=== PATIENT | male | born 1955 | race Caucasian/White ===

== ENCOUNTER → 2018-03-01 08:00 | Outpatient (CLI) | payer BC, SELFPAY ==
--- NOTE | 2018-03-01 | IMM_PTH ---
PATIENT: EARL ROGERS LOC: NADIA U#:[id number] AGE/SX: 69/M ROOM: RE03/01/[address]: Dr. Raghavendra Wilson MD : 1955 BED: DIS: SPEC #: [id number] RECD: 03/05/18 15:09 STATUS: TRAMAINE CHRISTIAN #: [id number] WILI: 03/01/18 00:[address]: Raghavendra Wilson DEPT: IMMUNOHISTOCHEMISTRY RECD BY: Rowan Powell Tissues: A - PROSTATE RIGHT D - PROSTATE LEFT Procedures: 34BE12 (add) P40 (add) 34BE12 (initial) PHYSICIAN & [place] [id number] SPECIMEN INFORMATION: Tissue Source: A - Right prostate, apex, core biopsy, D - Left prostate, apex, core biopsy Clinical Info: Elevated PSA Specimen Number: [id number] A & D CPT code: 73569, 51924 x3 METHODOLOGY: Deparaffinized sections of prefer/formalin-fixed tissue or PAP/DQ stained slides are incubated with monoclonal/polyclonal antibodies/oligonucleotide probes. Localization is made via biotin free immunoperoxidase method. Appropriate controls are performed and reacted as expected. Results on target cell population are indicated in the following table: RESULTS: ANTIBODY / CLONE RESULT Block A P40 (BC28) positive 34BE12 (34BE12) positive Block D P40 (BC28) positive 34BE12 (34BE12) positive These tests were developed and their performance characteristics determined by [facility]. They may not have been cleared or approved by the U.S. Food and Drug Administration. The FDA has determined that such clearance or approval is not necessary. INTERPRETATION: A. Right prostate, apex, core biopsy: Benign prostatic tissue. D. Left prostate, apex, core biopsy: Benign prostatic tissue. AM:emi 03/06/18
--- NOTE | 2018-03-01 08:00 | PROSBIL_PTH ---
PATIENT: EARL ROGERS LOC: NADIA U#:[id number] AGE/SX: 69/M ROOM: RE03/01/[address]: Dr. Raghavendra Wilson MD : 1955 BED: DIS: SPEC #: [id number] RECD: 03/01/18 16:00 STATUS: TRAMAINE CHRISTIAN #: [id number] WILI: 03/01/18 08:[address]: Raghavendra Wilson DEPT: SURGICAL PATHOLOGY RECD BY: Corby Monae Tissues: A - PROSTATE RIGHT B - PROSTATE RIGHT C - PROSTATE RIGHT D - PROSTATE LEFT E - PROSTATE LEFT F - PROSTATE LEFT Procedures: PROSTATE BX HEADER OPERATION: Prostate biopsy PRE-OP DIAGNOSIS: Elevated PSA TISSUE SUBMITTED: A - Right apex, B - Right mid, C - Right base, D - Left apex, E - Left mid, F - Left base MICROSCOPIC DIAGNOSIS A. Right prostate, apex, core biopsy: Focal high-grade prostatic intraepithelial neoplasia (HGPIN). B. Right prostate, mid, core biopsy: Adenocarcinoma: Ebro grade: 6 (3+3) Cores involved: 1 out of 2 cores Tissue involved: <1% Greatest tumor length: 0.6 mm C. Right prostate, base, core biopsy: Focal high-grade prostatic intraepithelial neoplasia (HGPIN) and mild chronic inflammation. D. Left prostate, apex, core biopsy: Focal high-grade prostatic intraepithelial neoplasia (HGPIN). E. Left prostate, mid, core biopsy: Focal high-grade prostatic intraepithelial neoplasia (HGPIN). Glandular atrophy and mild chronic inflammation. F. Left prostate, base, core biopsy: Adenocarcinoma: Ebro grade: 7 (3+4) Cores involved: 1 out of 2 cores Tissue involved: 20% Greatest tumor length: 4.5 mm AM:emi 03/05/18 COMMENT A & D. Immunohistochemistry ([id number]) supports the above diagnosis. Case has been reviewed in consultation with Dr. Jeffery who concurs with the above diagnosis. IDC:SJ MICROSCOPIC DESCRIPTION Slides are reviewed. GROSS DESCRIPTION A - Received is one container designated prostate, right apex. The specimen consists of one elongated fragment of light morataya-white soft tissue measuring 1 cm in length and 0.1 cm in diameter. The specimen is totally submitted in one cassette. B - Received is one container designated prostate, right mid. The specimen consists of two elongated fragments of light morataya-white soft tissue each measuring 1 cm in length and 0.1 cm in diameter. The specimen is totally submitted in one cassette. C - Received is one container designated prostate, right base. The specimen consists of two elongated fragments of light morataya-white soft tissue each measuring 1.5 cm in length and 0.1 cm in diameter. The specimen is totally submitted in one cassette. D - Received is one container designated prostate, left apex. The specimen consists of one elongated fragment of light morataya-white soft tissue measuring 1 cm in length and 0.1 cm in diameter. The specimen is totally submitted in one cassette. E - Received is one container designated prostate, left mid. The specimen consists of two elongated fragments of light morataya-white soft tissue each measuring 1 cm in length and 0.1 cm in diameter. The specimen is totally submitted in one cassette. F - Received is one container designated prostate, left base. The specimen consists of two elongated fragments of light morataya-white soft tissue each measuring 1.5 cm in length and 0.1 cm in diameter. The specimen is totally submitted in one cassette. / AM:emi 03/02/18 TC:0 CPT: 43737 x6 ADDENDUM ADDENDUM ADDENDUM ADDENDUM ADDENDUM ADDENDUM ADDENDUM ADDENDUM 04/26/2018 09:36 ADDENDUM 04/26/2018 09:36 ADDENDUM 04/26/2018 09:36 ADDENDUM 04/26/2018 09:36 ADDENDUM 04/26/2018 09:36 An order for Oncotype testing was received from Dr. Wilson. This necessitated case review, block and slide selection by pathologist at [facility]. Genomic Prostate Score = 42 Results of the complete Oncotype testing ([facility] report) are viewable in EMR under: Reports - Pathology - Lab Pathology Report, Scanned.
== END ==
PROVIDERS: Referring Provider Urology; Visit Provider Urology
DX: R97.20 Elevated prostate specific antigen [PSA] (principal)
CPT/HCPCS: 88305; 88341; 88342; G0416

== ENCOUNTER → 2018-03-12 09:32 | Outpatient (CLI) | payer BC, SELFPAY ==
--- NOTE | 2018-03-12 09:54 | NM_ITS ---
CLINICAL: 62-year-old male with reported history of diffuse arthralgia. WHOLE BODY 99m Tc MDP RADIONUCLIDE BONE SCINTIGRAPHY COMPARISON: None available FINDINGS: Following the intravenous administration of 24.9 mCi of 99m Tc MDP, whole body bone images reveal: 1. There is increased radiopharmaceutical concentration symmetrically apparent in the acromioclavicular and sternoclavicular compartments of both shoulders, focally defined in the mid to lower cervical spine posteriorly on the left and right, bilateral elbow and wrist articulations, both hands, knee articulations bilaterally, right-left midfoot and right forefoot. 2. The remaining skeletal structures are scintigraphically unremarkable with normal-appearing renal images and urinary bladder activity identified. NM/Bone Scan Whole Body IMPRESSION: 1. The increased radiopharmaceutical concentration identified in the bilateral shoulders, right and left elbows, wrist articulations bilaterally, cervical spine, right hip involving the inferior-posterior acetabulum, bilateral knees, the right-left mid foot and right forefoot is most consistent with degenerative arthritis. 2. There is no definitive scintigraphic evidence of trauma-fracture or large articulation synovial inflammation on the current examination. Electronically Signed: Curt Mora DO at 21:56 EST Tel , Service support ,
== END ==
PROVIDERS: Family Provider Family Medicine; PCP Family Medicine; Referring Provider Urology; Visit Provider Urology
DX: C61 Malignant neoplasm of prostate (principal)
CPT/HCPCS: 78306

== ENCOUNTER → 2018-05-28 12:25 | Outpatient (CLI) | payer BC, SELFPAY ==
--- NOTE | 2018-05-28 12:43 | CT_ITS ---
STUDY: CT ABDOMEN AND PELVIS WITH CONTRAST REASON FOR EXAM: Male, 62 years old. Prostate cancer RADIATION DOSAGE (If Supplied By Facility): CTDIvol = ( 17.23 ) mGy, DLP = ( 987.21 ) mGycm TECHNIQUE: Transaxial images were obtained from the dome of the diaphragm to the symphysis pubis without oral contrast. 100 ml of Isovue 300 contrast was administered. Sagittal and coronal images were reconstructed. Individualized dose optimization techniques were used for this CT. COMPARISON: None. FINDINGS: The visualized lung bases are unremarkable. The visualized portions of the heart are within normal limits. Normal liver. Normal gallbladder and extrahepatic biliary system. Normal spleen. Normal pancreas. Normal bilateral adrenal glands. Multiple right renal cysts. Normal left kidney. Normal visualized stomach. Normal small intestine. Constipation. The appendix is visualized and appears normal. Normal abdominal aorta. Normal inferior vena cava. Normal retroperitoneum. Normal urinary bladder. Normal abdominal wall. Normal osseous structures. CT/Abdomen/Pelvis WITH Contrast IMPRESSION: No evidence of metastatic disease. Constipation. Electronically Signed: Jesus Lucero MD at 13:23 EST Tel , Service support ,
[2018-05-28 13:00] LABS: EGFR FINGERSTICK > 60.0000 mL/min (>60)
== END ==
PROVIDERS: Family Provider Family Medicine; PCP Family Medicine; Referring Provider Urology; Visit Provider Urology
DX: C61 Malignant neoplasm of prostate (principal)
CPT/HCPCS: 74177; Q9967

== ENCOUNTER 2018-07-04 12:23 | Observation (INO) | payer BC, SELFPAY ==
[2018-06-21 11:11] VITALS: BP 145/80; PULSE 51; RESP 16; TEMP 36.9; O2SAT 98; BMI 29.2
--- NOTE | 2018-06-21 11:38 | SDCEKG_ITS ---
Test Reason : Blood Pressure : / mmHG Vent. Rate : 051 BPM Atrial Rate : 051 BPM P-R Int : 162 ms QRS Dur : 112 ms QT Int : 426 ms P-R-T Axes : 056 006 040 degrees QTc Int : 392 ms Sinus bradycardia Otherwise normal ECG Confirmed by ISABEL ANTHONY, BRUNO ([id number]), purchasing expeditor CHETNA WOODY ([id number]) on 06/27/2018 10:16:36 AM Referred By: Raghavendra Wilson Confirmed By:BRUNO HALL MD
[2018-06-21 12:05] LABS: Hematocrit 39.4 % (40-54); Hemoglobin 13.1 g/dl (13.0-16.5); Mean Corp Hgb Conc 33.2 g/gl (32-36); Mean Corpuscular Hgb 29.8 pg (27.0-32.0); Mean Corpuscular Volume 89.7 fL (80-94); Mean Platelet Vol. 9.9 fl (6.2-12.0); Platelet Count 211 K/mm3 (150-450); RBC Distribution Width CV 12.4 % (11.6-14.6); RBC Distribution Width SD 40.5 fl (35.1-43.9); Red Blood Count 4.39 M/mm3 (4.6-6.2); White Blood Count 6.2 K/mm3 (4.4-11.0)
[2018-06-21 12:07] LABS: Scan Indicated on CBC? Y/N NO
[2018-06-21 12:32] LABS: Anion Gap 9 (5-15); BUN 15 mg/dL (7-18); Calcium,Total 8.5 mg/dL (8.5-10.1); Chloride 106 mmol/L (98-107); Creatinine, Serum 1.07 mg/dL (0.70-1.30); EST Glomerular Filtration Rate 75 mL/min (>60); Est Glom Filt Rate - Afr Amer 90 mL/min (>60); Estimated Creatinine Clearance 79.57 ml/min; Glucose 144 mg/dL (74-106); Sodium Level 141 mmol/L (136-145)
[2018-07-04] VITALS (10 sets, daily range): BP systolic 119–145; BP diastolic 71–92; PULSE 81–103; RESP 14–20; TEMP 36.4–37.3; O2SAT 93–99; BMI 29.2; BMI 29.1
--- NOTE | 2018-07-04 | PROST_PTH ---
PATIENT: EARL ROGERS LOC: MS3 U#:[id number] AGE/SX: 62/M ROOM: MS306 RE07/04/[address]: Dr. Raghavendra Wilson MD : 1955 BED: 1 DIS: 07/05/2018 SPEC #: [id number] RECD: 07/04/18 14:54 STATUS: TRAMAINE GONZALES #: [id number] WILI: 07/04/18 00:[address]: Raghavendra Wilson DEPT: SURGICAL PATHOLOGY RECD BY: Rowan Powell ENTERED: 07/04/18 15:36 SP TYPE: PROSTATE OTHR DR: Dr. Rudy Joseph MD Tissues: A - Prostate, NOS B - Prostate, NOS C - Lymph node, NOS D - Lymph node, NOS Procedures: Frozen Section (charge) Surgery Specimen Level IV Surgery Specimen Level HEADER OPERATION: Lap robotic radical prostatectomy, nerve monitoring PRE-OP DIAGNOSIS: Elevated PSA, malignant neoplasm of prostate TISSUE SUBMITTED: A - Apical margin of prostate, frozen, B - Prostate, C - Left lymph node sample, D - Right lymph node sample FROZEN SECTION DIAGNOSIS A. Apical margin of prostate, biopsy: Negative for carcinoma. Prostatic glands present. AM: 07/04/18 MICROSCOPIC DIAGNOSIS A. Apical margin of prostate, biopsy: Negative for carcinoma. B. Prostate, radical prostatectomy: Adenocarcinoma. See cancer checklist below. C. Left pelvic lymph node, biopsy: Benign lymphoid tissue. No evidence of malignancy. See comment. D. Right pelvic lymph node, biopsy: Fibrofatty and benign vascular tissue. No evidence of carcinoma. AM: 07/06/18 COMMENT PROSTATE CANCER (RADICAL) SUMMARY: Procedure - radical prostatectomy Prostate size - 4.5 x 4.2 x 3.8 cm Prostate weight - 46.1 gm Lymph node sampling - see specimens C & D (pelvic lymph nodes). Histologic type - adenocarcinoma Histologic grade ([place] Pattern): Primary pattern - 4 Secondary pattern - 3 Total Ramon score - 7 Tumor Quantitation - 2 x 1.5 x 1.5 cm (from glass slides). Extraprostatic extension - not identified Seminal vesicle invasion - not identified Margins - uninvolved by invasive carcinoma. Treatment effect on carcinoma - unknown Lymph-Vascular invasion - not present Perineural invasion - present (focal) Additional pathologic findings - focal high grade PIN PATHOLOGIC STAGE: pT2c N0 Mx The above summary is in compliance with [employer] [place] (CAP) Cancer Protocols Checklist and [place] [employer] Committee on Cancer (AJCC), Staging Manual, 8th Ed. Reference is made to the patient's prostate needle core biopsies from 2018 ([id number]) in which prostatic adenocarcinoma, Ramon grade 7 (3+4) was identified. C. Immunohistochemistry ([id number]) supports the above diagnosis. MICROSCOPIC DESCRIPTION Slides are reviewed. GROSS DESCRIPTION A - Received fresh for frozen section consultation labeled with the patient's name is a specimen designated apical margin of prostate. The specimen consists of a single irregular fragment of red-morataya soft tissue measuring 0.6 x 0.3 x 0.1 cm. The specimen is totally submitted in one block for frozen section consultation. / AM:emi 07/05/18 B - Received in fixative is one container labeled with the patient's name and designated prostate. The specimen consists of prostate with attached seminal vesicles and vas deferens. The gland measures 4.5 cm transversely, 3.8 cm anterior-posteriorly and 4.2 cm craniocaudally. The gland weighs 46.1 gm. The apex of the gland is conical. The external surface is smooth and glistening. No rubbery nodularity or mass lesions are grossly palpated. The specimen is differentially inked as follows: anterior - red, right half - blue, and posterior portion of the gland - black. The gland is cut from apex to base of gland at approximately 3-4 mm sections. Serial sections do not reveal a distinct mass lesion. Manager [place] sections are submitted as follows: 1 - distal urethral shave, 2 - proximal mucosal shave, bladder shave, 3-6 - apical portion of gland, 7-10 - mid portion of gland, 11-20 - base of gland with 19 & 20 representing the most basal portion of the gland. / AM:emi 07/05/18 C - Received in fixative is one container labeled with the patient's name and designated left lymph node sample. The specimen consists of a single irregular fragment of light morataya soft tissue measuring 0.6 x 0.5 x 0.2 cm. The specimen is totally submitted in one cassette. / AM:emi 07/05/18 D - Received in fixative is one container labeled with the patient's name and designated right lymph node sample. The specimen consists of a single irregular fragment of yellow fatty tissue measuring 2.2 x 1.5 x 0.2 cm. The specimen is totally submitted in one cassette. / AM:emi 07/05/18 TC:0 CPT: 10831, 46012 x3, 28882
--- NOTE | 2018-07-04 | IMM_PTH ---
PATIENT: EARL ROGERS LOC: MS3 U#:[id number] AGE/SX: 62/M ROOM: MS306 RE07/04/[address]: Dr. Raghavendra Wilson MD : 1955 BED: 1 DIS: 07/05/2018 SPEC #: [id number] RECD: 07/06/18 11:36 STATUS: TRAMAINE REQ #: [id number] WILI: 07/04/18 00:[address]: Raghavendra Wilson DEPT: IMMUNOHISTOCHEMISTRY RECD BY: Rowan Powell ENTERED: 07/06/18 11:37 SP TYPE: IMMUNO OTHR DR: Dr. Rudy Joseph MD Tissues: C - Lymph node, NOS Procedures: Pankeratin (add) CD45 (initial) PHYSICIAN & INSTITUTION [place] [id number] SPECIMEN INFORMATION: Tissue Source: C - Left lymph node sample Clinical Info: Elevated PSA, malignant neoplasm of prostate Specimen Number: [id number] CPT code: 83503, 71778 METHODOLOGY: Deparaffinized sections of prefer/formalin-fixed tissue or PAP/DQ stained slides are incubated with monoclonal/polyclonal antibodies/oligonucleotide probes. Localization is made via biotin free immunoperoxidase method. Appropriate controls are performed and reacted as expected. Results on target cell population are indicated in the following table: RESULTS: ANTIBODY / CLONE RESULT Block C CD45 (RP2/18) positive AE1-3 (AE1/AE3/PCK26) negative These tests were developed and their performance characteristics determined by [facility]. They may not have been cleared or approved by the U.S. Food and Drug Administration. The FDA has determined that such clearance or approval is not necessary. INTERPRETATION: C. Left pelvic lymph node sample: One out of one lymph node tissue with no evidence of metastatic carcinoma. AM:emi 07/09/18
[2018-07-04 10:36] LABS: Bedside Glucose 103 mg/dL (70-110)
[2018-07-04] MEDS: Cefazolin 2 GM in 0.9% Normal Saline 100 ML IV (12:10)
[2018-07-04] MEDS: Bupivacaine Mpf 0.5% 30 ML VIAL (15:31)
--- NOTE | 2018-07-04 15:40 | PCM.HP.BLA ---
History and Physical Date of Admission: 07/04/18 62-year-old male who presented to the office with an elevated PSA of 4.2, the year before the PSA was 2.64. He underwent a prostate ultrasound guided biopsy. Prostate was normal in size about 21 g. 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 We talked about options of treatment, we performed an Oncotype DX test which came back with high grade features and a very high GPS score. Plan to proceed radical prostatectomy with nerve sparing. ALLERGIES: atorvastatin Sulfacetamide MEDICATIONS: Fluoxetine Hcl Losartan Potassium Multivitamin PSH: Prostate Needle Biopsy - 03/01/2018 Transrectal Biopsy US - 03/01/2018 NON- PSH: Colonoscopy Pneumococcal Vaccine Admin PMH: Malignant neoplasm of prostate - 03/15/2018 Elevated prostate specific antigen [PSA] - 02/12/2018 Family history of malignant neoplasm of prostate - 02/12/2018 Unspecified urinary incontinence NON- PMH: Anemia, unspecified Emphysema, unspecified Essential (primary) hypertension Type 2 diabetes mellitus without complications Immunizations: None FAMILY HISTORY: Colon Cancer - Runs in Family Congestive Heart Failure - Runs in Family Diabetes II - Runs in Family Liver cancer - Runs in Family SOCIAL HISTORY: Marital Status: Preferred Language: Urdu; Ethnicity: Not Or ; Race: White Current Smoking Status: Patient has never smoked. Tobacco Use Assessment Completed: Used Tobacco in last 30 days? Smoking cessation counseling was provided. Does not use smokeless tobacco. Social Drinker. Does not use drugs. Does not drink caffeine. Has not had a blood transfusion. REVIEW OF SYSTEMS: Constitutional: Patient denies fever, chills, weight loss, and weight gain. Genitourinary: Patient denies difficulty starting stream, get up at night to void, leakage of urine, blood in the urine, painful urination, urinary retention, frequent uti's, bedwetting, weak stream/scanty, frequent urination, and history of stones. VITAL SIGNS: 06/21/2018 10:29 AM Weight 210 lb / 95.25 kg Height 72 in / 182.88 cm BP 128/64 mmHg BMI 28.5 kg/m? - BMI Counseling was provided. PHYSICAL EXAMINATION: Anus and Perineum: No hemorrhoids. No anal stenosis. No rectal fissure, no anal fissure. No edema, no dimple, no perineal tenderness, no anal tenderness. Scrotum: No lesions. No edema. No cysts. No warts. Epididymides: Right: no spermatocele, no masses, no cysts, no tenderness, no induration, no enlargement. Left: no spermatocele, no masses, no cysts, no tenderness, no induration, no enlargement. Testes: No tenderness, no swelling, no enlargement left testes. No tenderness, no swelling, no enlargement right testes. Normal location left testes. Normal location right testes. No mass, no cyst, no varicocele, no hydrocele left testes. No mass, no cyst, no varicocele, no hydrocele right testes. Urethral Meatus: Normal size. No lesion, no wart, no discharge, no polyp. Normal location. Penis: Circumcised, no warts, no cracks. No dorsal Peyronie's plaques, no left corporal Peyronie's plaques, no right corporal Peyronie's plaques, no scarring, no warts. No balanitis, no meatal stenosis. Prostate: Prostate about 30 grams. Left lobe normal consistency, right lobe normal consistency. Symmetrical lobes. No prostate nodule. Left lobe no tenderness, right lobe no tenderness. Seminal Vesicles: Nonpalpable. Sphincter Tone: Normal sphincter. No rectal tenderness. No rectal mass. MULTI-SYSTEM PHYSICAL EXAMINATION: Constitutional: Well-nourished. No physical deformities. Normally developed. Good grooming. Neck: Neck symmetrical, not swollen. Normal tracheal position. Respiratory: No labored breathing, no use of accessory muscles. Lymphatic: No enlargement of neck, axillae, groin. Skin: No paleness, no jaundice, no cyanosis. No lesion, no ulcer, no rash. Neurologic / Psychiatric: Oriented to time, oriented to place, oriented to person. No depression, no anxiety, no agitation. Gastrointestinal: No mass, no tenderness, no rigidity, non obese abdomen. Eyes: Normal conjunctivae. Normal eyelids. Musculoskeletal: Normal gait and station of head and neck. PAST DATA REVIEWED: Source Of History: Patient Records Review: Previous Patient Records Urine Test Review: Urinalysis 12/27/17 12/27/16 PSA Total PSA 4.27 2.64 PROCEDURES: Urinalysis - 05695 Dipstick Dipstick Cont'd Specimen: Voided Blood: Neg Appearance: Clear pH: 5.0 Color: Yellow Protein: Neg Glucose: Normal Urobilinogen: Neg Bilirubin: Neg Nitrites: Neg Ketones: Neg Leukocyte Esterase: Neg ASSESSMENT: ICD-10 Details 1 : Malignant neoplasm of prostate - C61 2 Elevated prostate specific antigen [PSA] - R97.20 PLAN: Document Letter(s): Created for Patient: Clinical Summary Notes: 62-year-old male with a PSA of 4.2, Evington seven disease bilateral, very high GPS score. Given the findings and his young age I would recommend treatment. We talked about the options of treatment including radiation therapy and hormone therapy which he does not want to do and we talked about radical prostatectomy with removal the prostate with bilateral nerve sparing we talked about the impact on bladder control and the possibility to lose erections how the surgery done what to expect afterwards how to prepare for the surgery. Will do nerve monitoring during the procedure and will do bilateral nerve sparing. After for discussion with the patient and his family always questions are answered and he wants to proceed with surgery. Will be given a date for surgery, PAT, preoperative visit, bowel prep instructions, and will do nerve monitoring.
--- NOTE | 2018-07-04 15:45 | OP.PCM_ITS ---
Report of Operation Date of Procedure: 07/04/18 Pre-Operative Diagnosis: Prostate cancer Post-Operative Diagnosis: The same Surgery/Procedure Performed:: Laparoscopic robotic assisted bilateral nerve sparing radical prostatectomy, bilateral pelvic lymph node dissection, EMG monitoring of the pelvic nerves, suture suspension of the urethra. Description of Surgical Findings:: 62-year-old male who had prostate cancer has intermediate high risk disease we talked about options of management we have gone over his Oncotype DX score he wants to proceed with radical prostatectomy with bilateral nerve sparing we discussed the risk of the procedure the risk of loss of erections the loss of bladder control also potential to not get all the cancer and he may need more treatment the future. 62-year-old male taken back to the operating room at the smooth induction of general anesthesia he was placed supine on the table and then a dorsolithotomy position, legs were in stirrups, the abdomen was shaved prepped and draped in usual sterile fashion, made an incision deep in the umbilicus and superior part straight across introduced a Veress needle into the pneumoperitoneum and inflated pneumoperitoneum with CO2 gas. I then placed my robotic trochars right arm trocar to left arm trochars at air seal port and suction port for the day care assistant we then started by first mobilizing the colon out of the pelvis I then identified the right vas deferens traced all the way down to the right vas deferens on both the left vesicle these were dissected out without any electrocautery I then dissect out the left submuscular left vas deferens without electrocautery I then I dissected the space below the prostate above the do not be his fascia to create a nice plane between the prostate and an obvious fascia this came up fairly nicely. We then came up we dropped the bladder creases space of Retzius put the bladder on traction with the fourth arm performed the lymph node dissection on the right side and the pelvic lymph nodes these lymph nodes appeared negative very shotty small lymph nodes nothing engorged enlarged. The same lymph node dissection on the left side identified the external iliac artery the pelvic sidewall the the obturator nerve the obturator space after the printing machine operator tape rules space was dissected out with a letter cautery and clips these were sent off as a permanent again did not look involved. I then went to the apex incised the endopelvic fascia and the apex control the dorsal vein with a stitch dissected between the bladder and the prostate elevated prostate nicely had a very small bladder neck which was really nice we then elevated the seminal vesicles and vas deferens, I then clipped the pedicle on the right side of the prostate and then released the nerve bundle on the right side traced all the way up along the proximal aorta the apex with the left side clipped the pedicle on the left side and then released the bundle all the way on the left side all the way up to the apex we then transected through the dorsal vein complex there is no bleeding we reduce the pressure to 5 mmHg transected through the urethral stump sent off a piece of the tip of the prostate as a frozen which came back negative for any carcinoma we then performed the suture anastomosis suture suspension of the urethra between the bladder neck and the urethra this was done over a catheter. Also during the case we are monitoring the pelvic nerves, on the right side we identified the pelvic nerves and the lateral wall but before and after the dissection and then we went to the left side identified the pelvic nerves on the wall before and after the dissection both of these were spared with no change in EMG potentials before and after dissection a very nice sparing was performed very nice nerve sparing was performed anastomosis was really well we did not leave a drain I then extracted the prostate through the umbilicus closed all the ports and then closed the skin with a particular stitches patient's anesthetic was reversed taken back to PACU good condition. Minimal blood loss for the case. Type of Anesthesia:: General Drains: Martinez - Admit VTE Documentation VTE Present on Admission: No VTE Mechan Device Prophylaxis: SCD's
--- NOTE | 2018-07-04 15:46 | PCM.DC.URO ---
Discharge Diet: Light diet - advance as tolerated Discharge Activity: Return to Normal Activity Call your doctor if your incision/area has: Sudden Increased Bleeding Call your doctor if you observe: Fever of 101 or Higher Suture Line Care: Avoid Pulling/Pushing, Avoid Pinching/Bending Catheter: Martinez to leg bag, Martinez to large bag Drain: [place] Instructions: Discharge Instructions for Radical Prostatectomy Allergies/Adverse Reactions: Allergies No Known Allergies Allergy (Verified 06/21/18 11:08) Medications to take at Discharge Fluoxetine [Prozac] 40 mg PO DAILY 06/21/18 Losartan Potassium [Cozaar] 25 mg PO DAILY 06/21/18 Multivitamin with Iron [Daily Multivitamin with Iron] 1 each PO DAILY 06/21/18 Ciprofloxacin [Cipro] 500 mg PO BID #20 tab 07/04/18 Docusate Sodium [Colace] 100 mg PO BID #20 cap 07/04/18 Hydrocodone/Acetaminophen [[place] 5-325 Tablet] 1 ea PO Q4H PRN PRN 7 Days #14 tab 07/04/18 Primary Care Physician: Rudy Joseph MD [Primary Care Provider] - Test Results: Test results from this visit will be discussed in further detail at your follow-up appointment, if applicable. Please Follow Up With: Raghavendra Wilson MD When: please call to make an appointment. Proposed Discharge Date: 07/05/18
[2018-07-04 16:05] LABS: Bedside Glucose 124 mg/dL (70-110)
[2018-07-04] MEDS: Ketorolac 15 MG/ML Vial IV ×2 (16:29→18:41)
[2018-07-04] MEDS: Lactated Ringers 1,000 ML 125 ML IV (18:41)
[2018-07-04] MEDS: Docusate Sodium 100 MG Capsule 200 MG PO (21:55)
[2018-07-04] MEDS: Ciprofloxacin 400 MG/200 ML BAG 200 MG IV (21:56)
[2018-07-05] MEDS: Ketorolac 15 MG/ML Vial IV ×3 (00:03→11:14)
[2018-07-05 03:02] VITALS: BP 114/60; PULSE 75; RESP 14; TEMP 36.7; O2SAT 97
[2018-07-05] MEDS: Lactated Ringers 1,000 ML 125 ML IV (03:53)
[2018-07-05 06:17] LABS: Anion Gap 7 (5-15); BUN 16 mg/dL (7-18); BUN/Creat Ratio 14.5 RATIO (10-20); Calcium,Total 7.9 mg/dL (8.5-10.1); Chloride 106 mmol/L (98-107); EST Glomerular Filtration Rate 72 mL/min (>60); Est Glom Filt Rate - Afr Amer 87 mL/min (>60); Glucose 170 mg/dL (74-106); Potassium 3.9 mmol/L (3.5-5.1); Sodium Level 139 mmol/L (136-145)
[2018-07-05 06:33] LABS: Hematocrit 36.7 % (40-54); Hemoglobin 11.9 g/dl (13.0-16.5); Mean Corp Hgb Conc 32.4 g/gl (32-36); Mean Corpuscular Hgb 29.4 pg (27.0-32.0); Mean Corpuscular Volume 90.6 fL (80-94); Mean Platelet Vol. 9.9 fl (6.2-12.0); Platelet Count 217 K/mm3 (150-450); RBC Distribution Width CV 12.1 % (11.6-14.6); RBC Distribution Width SD 39.7 fl (35.1-43.9); Red Blood Count 4.05 M/mm3 (4.6-6.2); White Blood Count 12.2 K/mm3 (4.4-11.0)
[2018-07-05 06:37] LABS: Scan Indicated on CBC? Y/N NO
[2018-07-05] MEDS: Acetaminophen 500 MG Tablet PO (08:39)
[2018-07-05 09:00] VITALS: RESP 18
[2018-07-05 09:35] VITALS: BP 114/63; PULSE 64; RESP 16; TEMP 36.8; O2SAT 98
[2018-07-05] MEDS: Ciprofloxacin 400 MG/200 ML BAG 200 MG IV (11:17)
[2018-07-05] MEDS: Docusate Sodium 100 MG Capsule 200 MG PO (11:18)
[2018-07-05 12:56] VITALS: BP 111/66; PULSE 64; RESP 18; TEMP 37.2; O2SAT 97
== END 2018-07-05 13:03 | disposition home or self-care (01) ==
LOC: SDC 12:30 → MS3 16:55
PROVIDERS: Anesthesiology; Admitting Provider Urology; Family Provider Family Medicine; PCP Family Medicine; Referring Provider Urology; Visit Provider Urology
PROC: 0VT04ZZ Resection of Prostate, Percutaneous Endoscopic Approach (ICD-10-PCS; CPT 55866; principal; 2018-07-04 11:45)
DX: C61 Malignant neoplasm of prostate (principal); E11.9 Type 2 diabetes mellitus without complications; F41.9 Anxiety disorder, unspecified; F32.9 Major depressive disorder, single episode, unspecified; Z79.899 Other long term (current) drug therapy; I10 Essential (primary) hypertension; G47.30 Sleep apnea, unspecified; G25.81 Restless legs syndrome; K58.9 Irritable bowel syndrome, unspecified; K21.9 Gastro-esophageal reflux disease without esophagitis
CPT/HCPCS: 00860; 38570; 55866; S2900; 36415; 80048; 82962; 83036; 85027; 86850; 86900; 88305; 88309; 88331; 88341; 88342; 93005; 96361; 96365; 96366; 96375; 96376; 99218; J7120; G0378; G0379; J0744; J2405

== ENCOUNTER 2019-10-31 07:36 | Day surgery (SDC) | payer BC, SELFPAY ==
[2019-10-07 08:58] VITALS: BMI 29.1
--- NOTE | 2019-10-07 10:13 | HP_ITS ---
Intake Vital Signs 10/07/19 Height 6 ft 10/07/19 Weight: 195 lb 10/07/19 BMI 26.4 10/07/19 BP 156/84 H 10/07/19 Blood Pressure Location Rt brachial 10/07/19 Position Sitting 10/07/19 Respiration 20 H 10/07/19 Pulse 72 10/07/19 Pulse Source Monitor 10/07/19 Temp 98.0 F 10/07/19 Temp Source Temporal 10/07/19 Pulse Oximetry (%) 97 10/07/19 Oxygen Delivery Method room air Intake Visit Reasons: Hernia Chief Complaint: umbilical hernia Construction Supervisor Required: No Is patient in pain?: No Allergies No Known Allergies Allergy (Verified 10/07/19 08:56) Medications Multivitamin with Iron [Daily Multivitamin with Iron] 1 ea PO DAILY 06/21/18 [History Confirmed 10/07/19] fluoxetine 20 mg capsule 60 mg PO DAILY cap 10/07/19 [History Confirmed 10/07/19] PFSH Medical History Arthritis (Acute) Depression (Acute) Diabetes (Acute) Sleep apnea (Acute) Hypertension (Chronic) Surgical History (Updated 10/07/19 @ 08:53 by Sunshine King) History of colonoscopy (Acute ~06/07/19) History of robot-assisted laparoscopic radical prostatectomy (Acute) Family History (Updated 10/07/19 @ 08:54 by Sunshine King) Father Colon cancer Mother Diabetes Heart disease Hypertension Social History (Updated 10/07/19 @ 10:[address] Anton Cheek MD) Smoking Status: Never smoker alcohol intake: current substance use type: does not use HPI HPI HPI: EARL ROGERS, is a 63 M who presents to the office today for HPI HPI Surgical H&P: Yes HPI: EARL ROGERS, is a 63 M who presents to the office today for incisional hernia. The patient had a prostatectomy about 18 months ago and has developed a hernia at his umbilical port site. He does report increasing pain at the site. He is worried that it will grow and become incarcerating. No nausea or vomiting or radiation of pain. ROS General General: Yes weight change; no appetite, fatigue, colon cancer, breast cancer or weakness HEENT HEENT: No difficulty swallowing, eye injury, eye surgery, swollen glands or hoarseness Endo Endocrine: Yes diabetes mellitus; no thyroid disease, thyroid cancer, Hair loss, heat intolerance or cold intolerance Skin Skin: No rash or changing moles Breast Breast: No left breast lump, right breast lump, nipple discharge, breast pain, abnormal mammogram, abnormal US or breast enlargement Musc Musculoskeletal: Yes arthritis; no back problems, rheumatoid arthritis, gout or joint pain Cardio Cardiovascular: Yes high blood pressure; no murmur, pacemaker, heart disease, atrial fibrillation, heart attack, heart stent, palpitations, shortness of breat with exertion or chest pain Psych Psychiatric: Yes depression; no anxiety or hearing voices Resp Respiratory: No shortness of breath, Yes sleep apnea, No cough, No COPD, No asthma, No emphysema, No wheezing Gastro Gastrointestinal: No abdominal pain, No nausea or vomiting, No diarrhea, No constipation, No blood in stool, No acid reflux, No hemorrhoids, No ulcers, No gallbladder problem, No black,tarry stools Tree Hematologic: No blood thinners, No blood disorders, No bleeding, No anemia, No blood clots Neuro Neurologic: No system reviewed and no additional complaints, except as docu, No as per HPI, No abnormal walking, No abnormal hearing, No abnormal movements, No abnormal speech, No behavioral changes, No burning sensations, No confusion, No seizure-like activity, No unsteadiness, No dizziness, No localized weakness, No frequent falls, No headache(s), No lack of coordination, No loss of vision, No memory loss, Yes numbness, No other visual disturbances, No radiating pain, No restless legs, No sensory deficit, No fainting, Yes tingling, No tremor(s), No weakness, No other Exam Const General: cooperative Orientation: alert, oriented x3 Chest Breast Palpation: No nipple discharge Resp Effort & Inspection: normal respiratory effort Auscultation: clear to auscultation bilaterally Cardio Rate: regular rate Rhythm: regular rhythm Heart Sounds: no murmurs GI Inspection: non-distended Palpation: soft, hernia, nontender Assessment & Plan 1. Hernia K46.9 2. Incisional hernia, without obstruction or gangrene K43.2 Plan The patient has an incisional hernia at his umbilical port site. I discussed hernia repair with the patient in detail. I discussed the risks and alternatives. I discussed open incisional hernia repair with mesh. I will place mesh as this is an incisional hernia and this will allow for decreased risk of recurrence. I discussed the risks of surgery including not limited to bleeding, infection, injury to underlying organs. The patient would like to proceed in late September. We discussed the current risks associated with COVID-19. While it is understood that there is a community spread of COVID-19, the risk of ingrid COVID-19 while at [facility] ([facility] [place]) is very low; however, the risk cannot be completely mitigated because of the community spread of the disease. We discussed in detail the risk of exposure to and/or potential harm posed by the COVID-19 virus with having a surgery/procedure at this time versus the risk of delaying the surgery/procedure. It is not possible to know either the risk of delaying the surgery or procedure or chance of getting an infection with perfect accuracy, but a joint decision was made to proceed at this time with the scheduled surgery/procedure as indicated on the consent form. Patient was notified that we will need to comply with any screening or testing [facility] [place] wishes to perform or that surgery may be delayed for any positive results. Anton Cheek MD Pager: [facility] [place] [address] [place] [address], [address] [place] [address] Office: Coding Level of Care Code Off vis,new,level 3 Diagnoses Hernia K46.9 Incisional hernia, without obstruction or gangrene K43.2 ??Obstruction and gangrene presence: without obstruction or gangrene 10/07/19 1013 <Electronically signed by Anton dupree MD> Date _ Anton Cheek MD I have re-examined the patient. There are no clinical changes since date of exam.
[2019-10-25 16:31] LABS: Hematocrit 41.8 % (40-54); Hemoglobin 13.6 g/dL (13.0-16.5); Mean Corp Hgb Conc 32.5 g/dL (32-36); Mean Corpuscular Hgb 30.4 pg (27.0-32.0); Mean Corpuscular Volume 93.3 fL (80-94); Platelet Count 224 K/mm3 (150-450); RBC Distribution Width SD 41.5 fl (35.1-43.9); Red Blood Count 4.48 M/mm3 (4.6-6.2); White Blood Count 9.6 K/mm3 (4.4-11.0)
--- NOTE | 2019-10-25 16:32 | EKG12_ITS ---
Test Reason : PREOP Blood Pressure : / mmHG Vent. Rate : 049 BPM Atrial Rate : 049 BPM P-R Int : 164 ms QRS Dur : 114 ms QT Int : 448 ms P-R-T Axes : 063 014 050 degrees QTc Int : 404 ms Sinus bradycardia Otherwise normal ECG Confirmed by ISABEL ANTHONY, BRUNO ([id number]), food editor KENDELL GALO ([id number]) on 10/29/2019 11:07:57 AM Referred By: Anton Cheek Confirmed By:BRUNO HALL MD
[2019-10-31 07:59] VITALS: BP 147/84; PULSE 58; RESP 16; TEMP 37.1; O2SAT 95; BMI 25.6
[2019-10-31] MEDS: Lactated Ringers 1,000 ML 100 ML IV ×2 (08:04→09:45)
--- NOTE | 2019-10-31 09:00 | HERN_PTH ---
PATIENT: EARL ROGERS LOC: [facility] U#:[id number] AGE/SX: 63/M ROOM: RE10/31/[address]: Dr. Anton Cheek MD : [id number] BED: DIS: 10/31/2019 SPEC #: [id number] RECD: 10/31/19 10:22 STATUS: TRAMAINE CHRISTIAN #: [id number] WILI: 10/31/19 09:[address]: Anton Cheek DEPT: SURGICAL PATHOLOGY RECD BY: Corby Monae ENTERED: 10/31/19 11:32 SP TYPE: Hernia OTHR DR: Dr. Rudy Joseph MD Tissues: HERNIA Procedures: Surgery Specimen Level II HEADER OPERATION: Incisional hernia repair with mesh PRE-OP DIAGNOSIS: Incisional hernia TISSUE SUBMITTED: Scar tissue/hernia sac MICROSCOPIC DIAGNOSIS Scar tissue/hernia sac: Pieces of fibroconnective tissue with reactive changes, clinically incisional hernia. SJ:emi 11/04/19 MICROSCOPIC DESCRIPTION Slides are reviewed. GROSS DESCRIPTION Received in fixative is one container labeled with the patient's name and designated scar tissue/hernia sac. The specimen consists of a piece of morataya-yellow fibroadipose tissue measuring 4 x 2.5 x 0.5 cm. No mass lesion is identified. Chief Cardiopulmonary Technologist sections are submitted in one cassette. / TOAN:emi 10/31/19 TC:5 CPT: 35445
[2019-10-31] MEDS: Cefazolin 2 GM in 0.9% Normal Saline 100 ML IV (09:01)
[2019-10-31] MEDS: Bupiv/Epi 0.5% Mpf 30 ML Vial (09:38)
[2019-10-31 09:52] VITALS: BP 113/79; BP 147/84; PULSE 77; RESP 14; TEMP 37.2; O2SAT 97
--- NOTE | 2019-10-31 09:54 | OP.PCM_ITS ---
Problem List (1) Incisional hernia Status: Acute Qualifiers: Obstruction and gangrene presence: without obstruction or gangrene Qualified Code(s): K43.2 - Incisional hernia without obstruction or gangrene Report of Operation Date of Procedure: 10/31/19 Pre-Operative Diagnosis: Incisional ventral hernia Post-Operative Diagnosis: Same Surgery/Procedure Performed:: Incisional ventral hernia repair with mesh Specimen's removed: Hernia sac Description of Procedure: Patient was brought back the operating room and general anesthesia was induced. The abdomen was prepped and draped in usual sterile fashion. An incision was made over his previous incision in a horizontal fashion over the umbilicus. This was deepened to the hernia and the hernia sac was dissected free and removed. Patient had a 2 cm ventral hernia at his prior incision. A preperitoneal space was dissected free using electrocautery and the peritoneum was reapproximated using 3-0 Vicryl suture. A small ventralex mesh was placed into the preperitoneal space and sutured to the anterior fascia using 2-0 PDS suture. The area was irrigated and suctioned dry. The fascia was then reapproximated using interrupted 2-0 PDS sutures in a vertical fashion. The subcutaneous tissue was irrigated and suctioned dry and the umbilicus was s utured to the fascia using 3-0 Vicryl suture. The incision was closed with interrupted 3-0 Vicryl sutures as a running 4-0 Monocryl suture as well as Steri-Strips and a bandage and a cottonball was placed over the abdomen as well as a pressure dressing. Patient was awoken and taken to PACU in stable condition. He tolerated procedure well. Grafts/Implants Used: Small ventralex mesh - Admit VTE Documentation VTE Mechan Device Prophylaxis: SCD's
--- NOTE | 2019-10-31 09:58 | DCINST_ITS ---
Discharge Diet: Light diet - advance as tolerated Discharge Activity: Return to Normal Activity, May Not Drive - for 2-3 days or while taking narcotic pain meds., May Shower - with the bandage in place 1-2 days after surgery. Lifting Restrictions: 20 pounds for 3 weeks. Additional Activity Instructions:: Climbing stairs is fine, walking is encouraged. Sitting in bed may be uncomfortable. Sitting up using your lateral muscles (sitting up sideways) is usually more comfortable. Do not drive, work heavy equipment of sign legal documents for 24 hours. Pain medications may cause nausea, you should typically eat light foods as you take your pain medications. Pain medications may also cause constipation. If you have difficulty with this, discuss with your doctor. Call your doctor if your incision/area has: Continuous Slow Oozing, Sudden Increased Bleeding, Increased Pain/ Swelling, Increased Redness, Foul Smelling Discharge Call your doctor if you observe: Fever of 101 or Higher Suture Line Care: Avoid Pulling/Pushing, Avoid Pinching/Bending Change Dressing in (Days):: 3 - Leave steri-strips for 1 week. May protect with a guaze bandaid. Cleanse incision/area with: Keep Dressing Clean & Dry Allergies/Adverse Reactions: Allergies mesalamine Allergy (Verified 10/31/19 07:45) Upset Stomach Medications to take at Discharge Multivitamin with Iron [Daily Multivitamin with Iron] 1 ea PO DAILY 06/21/18 fluoxetine 20 mg capsule 60 mg PO DAILY cap 10/07/19 Oxycodone HCl/Acetaminophen [Percocet 5-325 mg Tablet] 1 - 2 tab PO Q6H PRN 5 Days #20 tablet 10/31/19 The following prescriptions were given: Oxycodone HCl/Acetaminophen [Percocet 5-325 mg Tablet] 1 - 2 tab PO Q6H PRN 5 Days #20 tablet PRN Reason: Pain Score 4-10/10 Transmission Status: Sent to [facility] Primary Care Physician: Rudy Joseph MD [Primary Care Provider] - Test Results: Test results from this visit will be discussed in further detail at your follow- up appointment, if applicable. Please Follow Up With: Anton Cheek MD When: Please call to schedule 2 week follow up appointment. [phone]
[2019-10-31 10:00] VITALS: BP 127/90; BP 147/84; PULSE 90; RESP 16; O2SAT 98
[2019-10-31 10:15] VITALS: BP 147/84; BP 163/87; PULSE 93; RESP 18; O2SAT 97
[2019-10-31 10:32] VITALS: BP 135/87; BP 147/84; PULSE 77; RESP 16; TEMP 36.8; O2SAT 94
[2019-10-31] MEDS: oxyCODONE 5 MG Tablet PO (11:10)
[2019-10-31] MEDS: Acetaminophen 325 MG Tablet PO (11:10)
[2019-10-31 11:21] VITALS: BP 144/79; BP 147/84; PULSE 88; RESP 18; TEMP 36.8; O2SAT 99
--- NOTE | 2019-10-31 12:36 | SUR.PHASEII ---
pt noted to have red seeping from original surgical dressing. dressing changed per dr jimenez instruction. no active oozing noted. second dressing became saturated. MD notified. MD assessed incision and redressed prior to pt discharge.
== END 2019-10-31 12:38 | disposition home or self-care (01) ==
LOC: SDC 07:38 → AC 07:43
PROVIDERS: Anesthesiology; PCP Family Medicine; Referring Provider Surgery; Visit Provider Surgery
PROC: (CPT 49560; principal; 2019-10-31 08:45)
DX: K43.2 Incisional hernia without obstruction or gangrene (principal); Z11.59 Encounter for screening for other viral diseases; I10 Essential (primary) hypertension; E11.9 Type 2 diabetes mellitus without complications; M19.90 Unspecified osteoarthritis, unspecified site; G47.30 Sleep apnea, unspecified; Z90.79 Acquired absence of other genital organ(s)
CPT/HCPCS: 00752; 49560; 49568; 36415; 85027; 87635; 88302; 93005; G2023; J7120; C1781; J2405; U0003

== ENCOUNTER 2021-08-18 14:00 | Outpatient (RCR) | payer BC, SELFPAY | END 2021-08-28 23:59 | LOC: DC 14:00 | PROVIDERS: PCP Family Medicine; Referring Provider Family Medicine; Visit Provider Family Medicine | DX: E11.9 Type 2 diabetes mellitus without complications (principal) | CPT/HCPCS: 97802; G0108 ==